=== PATIENT | female | born 1975 | race Caucasian/White ===

== ENCOUNTER 2017-08-17 06:29 | Day surgery (SDC) | payer BC ==
[2017-08-17] MEDS ORDERED: Sodium Chloride 0.9% 2.5 ML Syringe FLUSH PRN (06:38)
[2017-08-17] MEDS ORDERED: ceFAZolin 1 GM in Premix Bag 1 BAG IV ONE (06:38)
[2017-08-17] MEDS ORDERED: Sodium Chloride 0.9% 10 ML Syringe FLUSH PRN (06:38)
[2017-08-17] MEDS ORDERED: Lactated Ringers 1,000 ML IV SCH (06:45)
[2017-08-17] MEDS ORDERED: Scopolamine 1.5 MG Transdermal Patch TRDERM PRN (07:10)
--- NOTE | 2017-08-17 07:15 | PCM.PREANE ---
Preanesthetic Assessment - Anesthesia/Transfusion/Family Hx Anesthesia History: Prior Anesthesia Without Reaction Other Type of Anesthesia Reaction Comment: Awoke during orthopedic procedure ( sedation), no known problems in family Family History of Anesthesia Reaction: No Transfusion History: No Prior Transfusion(s) Intubation History: Unknown - Review of Systems General: No Symptoms Pulmonary: No Symptoms Cardiovascular: No Symptoms Gastrointestinal: No Symptoms Neurological: No Symptoms Other: Reports: None - Physical Assessment Height: 1.65 m Weight: 49.895 kg ASA Class: 2 Mental Status: Alert & Oriented x3 Airway Class: Mallampati = 2 Dentition: Reports: Normal Dentition Thyro-Mental Finger Breadths: 3 Mouth Opening Finger Breadths: 3 ROM/Head Extension: Full Lungs: Clear to Auscultation, Normal Respiratory Effort Cardiovascular: Regular Rate, Regular Rhythm - Allergies Allergies/Adverse Reactions: Allergies Allergy/AdvReac Type Severity Reaction Status Date / Time avocado Allergy Rash Verified 08/13/17 12:24 latex Allergy Itching Verified 08/13/17 12:24 strawberry Allergy Rash Verified 08/13/17 12:24 Fruits Allergy Rash Uncoded 03/07/14 10:13 Kiwi Allergy Rash Uncoded 03/07/14 10:13 strawb Allergy Rash Uncoded 03/07/14 10:13 - Blood Blood Available: No - Anesthesia Plan Pre-Op Medication Ordered: None - Acknowledgements Anesthesia Type Planned: General Anesthesia Pt an Appropriate Candidate for the Planned Anesthesia: Yes Alternatives and Risks of Anesthesia Discussed w Pt/Guardian: Yes Pt/Guardian Understands and Agrees with Anesthesia Plan: Yes PreAnesthesia Questionnaire HEENT History: Reports: Other (See Below) Other HEENT History: wears glasses Cardiovascular History: Reports: Heart Murmur Gastrointestinal History: Reports: None Genitourinary History: Reports: None 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: 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, , Other (See Below) (h/o ovarian cyst) Musculoskeletal History: Reports: Back Pain, Chronic, Fibromyalgia Neurological History: Reports: Migraines Psychiatric History: Reports: Anxiety, Depression Endocrine/Metabolic History: Reports: Hyperthyroidism (now normothyroid), Other (See Below) (h/o goiter) Oncologic (Cancer) History: Reports: None Dermatologic History: Reports: Other (See Below) (fibrocystic breats) - Past Surgical History Head Surgeries/Procedures: Reports: None GI Surgical History: Reports: Cholecystectomy Female Surgical History: Reports: Breast Biopsy, Section, D&C Other Female Surgeries/Procedures: laparoscopy for endometriosis x4 Musculoskeletal Surgical History: Reports: Other (See Below) Other Musculoskeletal Surgeries/Procedures:: debbie bunionectomy, ulnar nerve release Oncologic Surgical History: Reports: Biopsy of Breast - SUBSTANCE USE Smoking Status *Q: Former Smoker Tobacco Use Within Last Twelve Months: Cigarettes Recreational Drug Use History: No - HOME MEDS Home Medications: Home Meds Fexofenadine [Radha] 180 mg PO DAILY 08/13/17 [History] Pregabalin [Lyrica] 1 tab PO BID 08/13/17 [History] Varenicline Tartrate [Chantix] 1 tab PO BID 08/13/17 [History] - CURRENT (IN HOUSE) MEDS Current Meds: Current Medications Lactated Ringer's (Ringers, Lactated) 1,000 mls @ 125 mls/hr IV ASDIRECTED [facility] Lactated Ringer's (Ringers, Lactated) 1,000 mls @ 125 mls/hr IV ASDIRECTED [facility] Scopolamine (Transderm-Scop) 1.5 mg TRDERM Q72H PRN PRN Reason: Nausea Sodium Chloride (Saline Flush) 10 ml FLUSH ASDIRECTED PRN PRN Reason: Keep Vein Open Sodium Chloride (Saline Flush) 2.5 ml FLUSH ASDIRECTED PRN PRN Reason: Keep Vein Open Discontinued Medications Cefazolin Sodium/Dextrose 1 gm (/ Premix) 50 mls @ 100 mls/hr IV ONETIME ONE Stop: 08/17/17 07:07
[2017-08-17] MEDS ORDERED: Propofol 200 MG/20 ML SDV ONE ×2 (07:18→09:57)
[2017-08-17] MEDS ORDERED: Lidocaine 2% 5 ML SDV ONE (07:18)
[2017-08-17] MEDS ORDERED: Midazolam 1 MG/ML 2 ML SDV ONE (07:19)
[2017-08-17] MEDS: Lactated Ringers 1,000 ML IV SCH ×2 (07:19→13:51)
[2017-08-17] MEDS ORDERED: fentaNYL 100 MCG/2 ML SDV ONE ×2 (07:19→11:08)
[2017-08-17] MEDS ORDERED: fentaNYL 250 MCG/5 ML SDV ONE (07:19)
[2017-08-17] MEDS ORDERED: Ondansetron 4 MG/2 ML SDV ONE (07:23)
[2017-08-17] MEDS ORDERED: Ketorolac 30 MG/ML SDV ONE (07:23)
[2017-08-17] MEDS ORDERED: Neostigmine Methylsulfate 1 MG/ML 5 ML Syringe ONE (07:23)
[2017-08-17] MEDS ORDERED: Glycopyrrolate 0.2 MG/ML SDV ONE (07:23)
[2017-08-17] MEDS ORDERED: Rocuronium 10 MG/ML 10 ML Syringe ONE (07:23)
[2017-08-17] MEDS ORDERED: Vasopressin 20 Units/1 ML MDV ONE (07:30)
[2017-08-17] MEDS ORDERED: Fluorescein 5 ML Vial ONE (07:31)
[2017-08-17] MEDS ORDERED: Bupivacaine 0.25% 10 ML SDV ONE (07:31)
[2017-08-17] MEDS ORDERED: Methylene Blue 50 MG/10 ML Ampule ONE (07:42)
[2017-08-17 07:59] LABS: CHLORIDE,CL 103 mmol/L (98-107); SODIUM,NA 139 mmol/L (136-145)
[2017-08-17] MEDS ORDERED: ePHEDrine 50 MG/ML SDV ONE (08:36)
[2017-08-17] MEDS ORDERED: Furosemide 40 MG/4 ML VIAL ONE (08:38)
[2017-08-17] MEDS ORDERED: Promethazine 25 MG/ML SDV IM PRN (12:37)
[2017-08-17] MEDS ORDERED: Ketorolac 30 MG/ML SDV IVPUSH PRN (12:37)
[2017-08-17] MEDS ORDERED: Morphine 4 MG/ML Syringe IVPUSH PRN (12:37)
[2017-08-17] MEDS ORDERED: Acetaminophen/oxyCODONE 325-5 MG Tab PO PRN (12:37)
[2017-08-17] MEDS ORDERED: Ketorolac 30 MG/ML SDV IVPUSH ONE (12:37)
[2017-08-17] MEDS ORDERED: Ondansetron 4 MG/2 ML SDV IVPUSH PRN (12:37)
[2017-08-17] MEDS ORDERED: HYDROmorphone 2 MG/ML SDV ONE (12:46)
[2017-08-17] MEDS: fentaNYL 100 MCG/2 ML SDV IVPUSH PRN ×2 (12:47→12:55)
[2017-08-17] MEDS: HYDROmorphone 2 MG/ML SDV IVPUSH ONE ×2 (12:49→13:00)
--- NOTE | 2017-08-17 12:49 | PCM.OPNOTE ---
- General Post-Op/Procedure Note Date of Surgery/Procedure: 08/17/17 Operative Procedure(s): Total laparoscopic Hysterectomy , Bilateral salphingectomy , Cystoscopy Findings: Normal sized mobile uterus Laparoscopy showed normal uterus tubes and ovaries , no endometriotic deposits noted Cystoscopy showed intact bladder , normal ureteral jets bilaterally Pre Op Diagnosis: Abnormal uterine bleeding Post-Op Diagnosis: same Anesthesia Technique: General Mask Primary Surgeon: Gail Clark Secondary Surgeon: Vanessa Jules Anesthesia Provider: Delia Harris Radic Pathology: Uterus and tubes Fluid Replacement, Intraop: 2,300 Output, Urine Amount: 800 EBL in mLs: 10 Complications: None Condition: Good
--- NOTE | 2017-08-17 12:54 | PCM.POSTAN ---
POST ANESTHESIA ASSESSMENT - MENTAL STATUS Mental Status: Alert, Oriented - RESPIRATORY Respiratory Status: Respiratory Rate WNL, Airway Patent, O2 Saturation Stable - CARDIOVASCULAR CV Status: Pulse Rate WNL, Blood Pressure Stable - GASTROINTESTINAL GI Status: No Symptoms - POST OP HYDRATION Hydration Status: Adequate & Stable
[2017-08-17] MEDS: Acetaminophen 1,000 MG in Premix Bag 1 BAG IV SCH ×2 (14:43→20:40)
[2017-08-17] MEDS: Metoclopramide 10 MG/2 ML SDV IVPUSH SCH ×2 (14:46→20:40)
[2017-08-17] MEDS: Morphine 10 MG/ML Syringe IVPUSH PRN ×2 (15:26→17:44)
[2017-08-17] MEDS: ceFAZolin 1 GM in Premix Bag 1 BAG IV SCH ×2 (16:06→22:22)
--- NOTE | 2017-08-17 20:33 | PCM.SURGPN ---
- General Info Date of Service: 08/17/17 Date of Surgery/Procedure: 08/17/17 POD#: 0 Post-Op Diagnosis: Abnormal Uterine bleeding Admission Diagnosis/Problem: Abnormal uterine bleeding unrelated to menstrual cycle Functional Status: Reports: Pain Controlled, Tolerating Diet, Ambulating - Review of Systems General: Reports: No Symptoms HEENT: Reports: No Symptoms Pulmonary: Reports: No Symptoms Cardiovascular: Reports: No Symptoms Gastrointestinal: Reports: No Symptoms Genitourinary: Reports: No Symptoms Musculoskeletal: Reports: No Symptoms Skin: Reports: No Symptoms Neurological: Reports: No Symptoms Psychiatric: Reports: No Symptoms - Patient Data Vitals - Most Recent: Last Vital Signs Temp 35.9 C 08/17/17 14:05 Pulse 56 L 08/17/17 16:10 Resp 16 08/17/17 16:10 BP 109/58 L 08/17/17 16:10 Pulse Ox 99 08/17/17 16:10 Weight - Most Recent: 49.895 kg I&O - Last 24 Hours: Intake & Output 08/17/17 08/17/17 08/17/17 06:59 14:59 22:59 Intake Total 5200 720 Output Total 1950 825 Balance 3250 -105 Lab Results Last 24 Hrs: Laboratory Results - last 24 hr 08/17/17 08/17/17 08/17/17 Range/Units 07:09 07:09 07:14 WBC 5.30 (4.0-11.0) K/uL RBC 4.12 L (4.30-5.90) M/uL Hgb 12.7 (12.0-16.0) g/dL Hct 38.0 (36.0-46.0) % MCV 92.2 (80.0-98.0) fL MCH 30.8 (27.0-32.0) pg MCHC 33.4 (31.0-37.0) g/dL RDW Std Deviation 43.1 (28.0-62.0) fl RDW Coeff of Kay 13 (11.0-15.0) % Plt Count 247 (150-400) K/uL MPV 9.70 (7.40-12.00) fL Neut % (Auto) 45.2 L (48.0-80.0) % Lymph % (Auto) 40.4 H (16.0-40.0) % Moffat % (Auto) 10.6 (0.0-15.0) % Eos % (Auto) 3.0 (0.0-7.0) % Baso % (Auto) 0.8 (0.0-1.5) % Neut # (Auto) 2.4 (1.4-5.7) K/uL Lymph # (Auto) 2.1 (0.6-2.4) K/uL Moffat # (Auto) 0.6 (0.0-0.8) K/uL Eos # (Auto) 0.2 (0.0-0.7) K/uL Baso # (Auto) 0.0 (0.0-0.1) K/uL Nucleated RBC % 0.0 /100WBC Nucleated RBCs # 0 K/uL Sodium 139 (136-145) mmol/L Potassium 3.6 (3.5-5.1) mmol/L Chloride 103 (98-107) mmol/L Carbon Dioxide 26.8 (21.0-32.0) mmol/L BUN 9 (7.0-18.0) mg/dL Creatinine 0.9 (0.6-1.0) mg/dL Est Cr Clr Drug Dosing 63.48 mL/min Estimated GFR (MDRD) > 60.0 ml/min Glucose 100 (74-106) mg/dL Calcium 8.7 (8.5-10.1) mg/dL HCG, Qual NEGATIVE (NEG) Blood Type Antibody Screen 08/17/17 Range/Units 07:14 WBC (4.0-11.0) K/uL RBC (4.30-5.90) M/uL Hgb (12.0-16.0) g/dL Hct (36.0-46.0) % MCV (80.0-98.0) fL MCH (27.0-32.0) pg MCHC (31.0-37.0) g/dL RDW Std Deviation (28.0-62.0) fl RDW Coeff of Kay (11.0-15.0) % Plt Count (150-400) K/uL MPV (7.40-12.00) fL Neut % (Auto) (48.0-80.0) % Lymph % (Auto) (16.0-40.0) % Moffat % (Auto) (0.0-15.0) % Eos % (Auto) (0.0-7.0) % Baso % (Auto) (0.0-1.5) % Neut # (Auto) (1.4-5.7) K/uL Lymph # (Auto) (0.6-2.4) K/uL Moffat # (Auto) (0.0-0.8) K/uL Eos # (Auto) (0.0-0.7) K/uL Baso # (Auto) (0.0-0.1) K/uL Nucleated RBC % /100WBC Nucleated RBCs # K/uL Sodium (136-145) mmol/L Potassium (3.5-5.1) mmol/L Chloride (98-107) mmol/L Carbon Dioxide (21.0-32.0) mmol/L BUN (7.0-18.0) mg/dL Creatinine (0.6-1.0) mg/dL Est Cr Clr Drug Dosing mL/min Estimated GFR (MDRD) ml/min Glucose (74-106) mg/dL Calcium (8.5-10.1) mg/dL HCG, Qual (NEG) Blood Type AB POSITIVE Antibody Screen NEGATIVE Med Orders - Current: Current Medications Fentanyl (Sublimaze) 50 mcg IVPUSH Q5M PRN PRN Reason: Pain (severe 7-10) Stop: 08/18/17 09:26 Last Admin: 08/17/17 12:55 Dose: 50 mcg Lactated Ringer's (Ringers, Lactated) 1,000 mls @ 125 mls/hr IV ASDIRECTED [facility] Last Admin: 08/17/17 13:51 Dose: 125 mls/hr Lactated Ringer's (Ringers, Lactated) 1,000 mls @ 125 mls/hr IV ASDIRECTED [facility] Cefazolin Sodium/Dextrose 1 gm (/ Premix) 50 mls @ 200 mls/hr IV Q8HR [facility] Stop: 08/17/17 22:14 Last Admin: 08/17/17 16:06 Dose: 200 mls/hr Ketorolac Tromethamine (Toradol) 30 mg IVPUSH Q6H PRN PRN Reason: Pain (severe 7-10) Stop: 08/22/17 12:37 Metoclopramide HCl (Reglan) 10 mg IVPUSH Q6H [facility] Stop: 08/18/17 12:00 Last Admin: 08/17/17 14:46 Dose: 10 mg Morphine Sulfate (Morphine) 4 mg IVPUSH Q2H PRN PRN Reason: Pain (severe 7-10) Last Admin: 08/17/17 17:44 Dose: 4 mg Ondansetron HCl (Zofran) 4 mg IVPUSH Q6H PRN PRN Reason: Nausea/Vomiting Oxycodone/Acetaminophen (Percocet 325-5 Mg) 1 tab PO Q4H PRN PRN Reason: Pain (moderate 4-6) Oxycodone/Acetaminophen (Percocet 325-5 Mg) 2 tab PO Q4H PRN PRN Reason: Pain (moderate 4-6) Promethazine HCl (Phenergan) 25 mg IM Q6H PRN PRN Reason: Nausea/Vomiting Scopolamine (Transderm-Scop) 1.5 mg TRDERM Q72H PRN PRN Reason: Nausea Last Admin: 08/17/17 07:19 Dose: 1.5 mg Sodium Chloride (Saline Flush) 10 ml FLUSH ASDIRECTED PRN PRN Reason: Keep Vein Open Sodium Chloride (Saline Flush) 2.5 ml FLUSH ASDIRECTED PRN PRN Reason: Keep Vein Open Discontinued Medications Bupivacaine HCl (Sensorcaine-Mpf 0.25%) Confirm Administered Dose 10 ml .ROUTE .STK-MED ONE Stop: 08/17/17 07:32 Ephedrine Sulfate (Ephedrine Sulfate) Confirm Administered Dose 50 mg .ROUTE .STK-MED ONE Stop: 08/17/17 08:37 Fentanyl (Sublimaze) Confirm Administered Dose 100 mcg .ROUTE .STK-MED ONE Stop: 08/17/17 07:20 Fentanyl (Sublimaze) Confirm Administered Dose 250 mcg .ROUTE .STK-MED ONE Stop: 08/17/17 07:20 Fentanyl (Sublimaze) Confirm Administered Dose 100 mcg .ROUTE .STK-MED ONE Stop: 08/17/17 11:09 Fluorescein Sodium (Ak-Fluor) Confirm Administered Dose 5 ml .ROUTE .STK-MED ONE Stop: 08/17/17 07:32 Furosemide (Lasix) Confirm Administered Dose 40 mg .ROUTE .STK-MED ONE Stop: 08/17/17 08:39 Glycopyrrolate (Robinul) Confirm Administered Dose 0.6 mg .ROUTE .STK-MED ONE Stop: 08/17/17 07:24 Hydromorphone HCl (Dilaudid) 0 mg IVPUSH ONETIME ONE Stop: 08/17/17 09:27 Last Admin: 08/17/17 13:00 Dose: 1 mg Hydromorphone HCl (Dilaudid) Confirm Administered Dose 2 mg .ROUTE .STK-MED ONE Stop: 08/17/17 12:47 Cefazolin Sodium/Dextrose 1 gm (/ Premix) 50 mls @ 100 mls/hr IV ONETIME ONE Stop: 08/17/17 07:07 Cefazolin Sodium/Dextrose (Ancef) Confirm Administered Dose 50 mls @ as directed .ROUTE .STK-MED ONE Stop: 08/17/17 07:24 Acetaminophen 1,000 mg/ Premix 100 mls @ 400 mls/hr IV Q6H [facility] Stop: 08/17/17 20:14 Last Admin: 08/17/17 14:43 Dose: 400 mls/hr Ketorolac Tromethamine (Toradol) Confirm Administered Dose 30 mg .ROUTE .STK- MED ONE Stop: 08/17/17 07:24 Ketorolac Tromethamine (Toradol) 30 mg IVPUSH ONETIME ONE Stop: 08/17/17 12:38 Lidocaine (Xylocaine-Mpf 2%) Confirm Administered Dose 10 ml .ROUTE .STK-MED ONE Stop: 08/17/17 07:19 Methylene Blue (Provayblue) Confirm Administered Dose 50 mg .ROUTE .STK-MED ONE Stop: 08/17/17 07:43 Midazolam HCl (Versed 1 Mg/Ml) Confirm Administered Dose 2 mg .ROUTE .STK-MED ONE Stop: 08/17/17 07:20 Morphine Sulfate (Morphine) 4 mg IVPUSH Q2H PRN PRN Reason: Pain (severe 7-10) Neostigmine Methylsulfate (Neostigmine) Confirm Administered Dose 5 mg .ROUTE .STK-MED ONE Stop: 08/17/17 07:24 Ondansetron HCl (Zofran) Confirm Administered Dose 8 mg .ROUTE .STK-MED ONE Stop: 08/17/17 07:24 Propofol (Diprivan 20 Ml) Confirm Administered Dose 400 mg .ROUTE .STK-MED ONE Stop: 08/17/17 07:19 Propofol (Diprivan 20 Ml) Confirm Administered Dose 200 mg .ROUTE .STK-MED ONE Stop: 08/17/17 09:58 Rocuronium [place] (Zemuron) Confirm Administered Dose 100 mg .ROUTE .STK-MED ONE Stop: 08/17/17 07:24 Vasopressin (Vasopressin) Confirm Administered Dose 20 units .ROUTE .STK-MED ONE Stop: 08/17/17 07:31 - Exam Wound/Incisions: Dressing Dry and Intact General: Alert HEENT: Pupils Equal Neck: Supple Lungs: Clear to Auscultation Cardiovascular: Regular Rate, Regular Rhythm GI/Abdominal Exam: Other (Hypoactive) Extremities: Normal Inspection - Problem List & Annotations (1) S/P hysterectomy SNOMED Code(s): 278183174, 853140533, 902370218 Code(s): Z90.710 - ACQUIRED ABSENCE OF BOTH CERVIX AND UTERUS Status: Acute Current Visit: Yes - Problem List Review Problem List Initiated/Reviewed/Updated: Yes - My Orders Last 24 Hours: Active Orders 24 hr Category Date Time Status Patient Status [ADT] Routine ADT 08/17/17 06:39 Active Patient Status [ADT] Routine ADT 08/17/17 12:37 Active Notify Provider Intake and Out [RC] ASDIRECTED Care 08/17/17 12:37 Active Notify Provider Vital Signs [RC] ASDIRECTED Care 08/17/17 12:37 Active Oxygen Therapy [RC] ASDIRECTED Care 08/17/17 12:37 Active RT Incentive Spirometry [RC] Q2HWA Care 08/17/17 12:37 Active Up With Assistance [RC] PER UNIT ROUTINE Care 08/17/17 12:37 Active Up ad Pamela [RC] PER UNIT ROUTINE Care 08/17/17 12:37 Active Urinary Catheter Removal [RC] Per Unit Routine Care 08/17/17 12:37 Active Verify Patient Consent Obtain [RC] PER UNIT ROUTINE Care 08/17/17 06:39 Active Vital Signs [RC] PER UNIT ROUTINE Care 08/17/17 06:39 Active Vital Signs [RC] PER UNIT ROUTINE Care 08/17/17 12:37 Active Regular Diet [DIET] Diet 08/17/17 Dinner Active BASIC METABOLIC PANEL,BMP [CHEM] AM Lab 08/18/17 05:11 Ordered CBC WITH AUTO DIFF [HEME] AM Lab 08/18/17 05:11 Ordered Acetaminophen/oxyCODONE [Percocet 325-5 MG] Med 08/17/17 12:37 Active 1 tab PO Q4H PRN Acetaminophen/oxyCODONE [Percocet 325-5 MG] Med 08/17/17 12:37 Active 2 tab PO Q4H PRN Ketorolac [Toradol] Med 08/17/17 12:37 Active 30 mg IVPUSH Q6H PRN Lactated Ringers [Ringers, Lactated] 1,000 ml Med 08/17/17 06:45 Active IV ASDIRECTED Lactated Ringers [Ringers, Lactated] 1,000 ml Med 08/17/17 06:45 Active IV ASDIRECTED Metoclopramide [Reglan] Med 08/17/17 12:45 Active 10 mg IVPUSH Q6H Morphine Med 08/17/17 15:20 Active 4 mg IVPUSH Q2H PRN Ondansetron [Zofran] Med 08/17/17 12:37 Active 4 mg IVPUSH Q6H PRN Promethazine [Phenergan] Med 08/17/17 12:37 Active 25 mg IM Q6H PRN Scopolamine [Transderm-Scop] Med 08/17/17 07:10 Active 1.5 mg TRDERM Q72H PRN Sodium Chloride 0.9% [Saline Flush] Med 08/17/17 06:38 Active 10 ml FLUSH ASDIRECTED PRN Sodium Chloride 0.9% [Saline Flush] Med 08/17/17 06:38 Active 2.5 ml FLUSH ASDIRECTED PRN ceFAZolin [Ancef] 1 gm Med 08/17/17 16:00 Active Premix Bag 1 bag IV Q8HR fentaNYL [Sublimaze] Med 08/17/17 09:26 Active 50 mcg IVPUSH Q5M PRN Peripheral IV Discontinue [OM.PC] Routine Oth 08/17/17 12:37 Ordered Peripheral IV Insertion Adult [OM.PC] Urgent Oth 08/17/17 06:39 Ordered Sequential Compression Device [OM.PC] Per Unit Routine Oth 08/17/17 06:39 Ordered Sequential Compression Device [OM.PC] Per Unit Routine Oth 08/17/17 12:37 Ordered Resuscitation Status Routine Resus Stat 08/17/17 12:37 Ordered Medication Orders Fentanyl (Sublimaze) 50 mcg IVPUSH Q5M PRN PRN Reason: Pain (severe 7-10) Stop: 08/18/17 09:26 Last Admin: 08/17/17 12:55 Dose: 50 mcg Admin: 08/17/17 12:47 Dose: 50 mcg Lactated Ringer's (Ringers, Lactated) 1,000 mls @ 125 mls/hr IV ASDIRECTED [facility] Last Admin: 08/17/17 13:51 Dose: 125 mls/hr Infusion: 08/17/17 13:51 Dose: 125 mls/hr Admin: 08/17/17 07:19 Dose: 125 mls/hr Lactated Ringer's (Ringers, Lactated) 1,000 mls @ 125 mls/hr IV ASDIRECTED [facility] Cefazolin Sodium/Dextrose 1 gm (/ Premix) 50 mls @ 200 mls/hr IV Q8HR [facility] Stop: 08/17/17 22:14 Last Admin: 08/17/17 16:06 Dose: 200 mls/hr Ketorolac Tromethamine (Toradol) 30 mg IVPUSH Q6H PRN PRN Reason: Pain (severe 7-10) Stop: 08/22/17 12:37 Metoclopramide HCl (Reglan) 10 mg IVPUSH Q6H [facility] Stop: 08/18/17 12:00 Last Admin: 08/17/17 14:46 Dose: 10 mg Morphine Sulfate (Morphine) 4 mg IVPUSH Q2H PRN PRN Reason: Pain (severe 7-10) Last Admin: 08/17/17 17:44 Dose: 4 mg Admin: 08/17/17 15:26 Dose: 4 mg Ondansetron HCl (Zofran) 4 mg IVPUSH Q6H PRN PRN Reason: Nausea/Vomiting Oxycodone/Acetaminophen (Percocet 325-5 Mg) 1 tab PO Q4H PRN PRN Reason: Pain (moderate 4-6) Oxycodone/Acetaminophen (Percocet 325-5 Mg) 2 tab PO Q4H PRN PRN Reason: Pain (moderate 4-6) Promethazine HCl (Phenergan) 25 mg IM Q6H PRN PRN Reason: Nausea/Vomiting Scopolamine (Transderm-Scop) 1.5 mg TRDERM Q72H PRN PRN Reason: Nausea Last Admin: 08/17/17 07:19 Dose: 1.5 mg Sodium Chloride (Saline Flush) 10 ml FLUSH ASDIRECTED PRN PRN Reason: Keep Vein Open Sodium Chloride (Saline Flush) 2.5 ml FLUSH ASDIRECTED PRN PRN Reason: Keep Vein Open - Assessment Assessment (Free Text/Narrative):: 42 yo s/p TLH /BS POD 0, stable , has good pain control , U/O adequate , clear - Plan Plan (Free Text/Narrative):: Incentive spirometry Ambulate Pain control as needed
[2017-08-17] MEDS: Acetaminophen/oxyCODONE 325-5 MG Tab PO PRN (22:26)
--- NOTE | 2017-08-18 00:54 | OR ---
SURGEON: ESTEPHANIA MIKE DATE OF PROCEDURE: 08/17/2017 CO-SURGEON: Vanessa Jules MD PREOPERATIVE DIAGNOSES: 1. A 42-year-old para 3 with abnormal uterine bleeding. 2. History of endometriosis. POSTOPERATIVE DIAGNOSIS: Abnormal uterine bleeding. PROCEDURES PERFORMED: Total laparoscopic hysterectomy, bilateral salpingectomy, and cystoscopy. INTRAVENOUS FLUIDS: 2300 mL. ESTIMATED BLOOD LOSS: 10 mL. URINE OUTPUT: 800 mL, clear. FINDINGS: Normal-sized anteverted uterus. Laparoscopy showed normal uterus, tubes, and ovary. There was a physiological cyst about 2 cm on the right ovary. BRIEF HISTORY ABOUT PATIENT: She is a 42-year-old para 3 with history of and x1, has also had multiple laparoscopies done for endometriosis. We could not get records. However, the patient came in complaining of abnormal uterine bleeding and very painful periods. She said NSAIDs did not improve her pain. The patient did not want any other form of management and allergic to Depo-Provera in the past. As a result, the patient wanted to go ahead with a hysterectomy. She was informed the risks, benefits, and alternatives and wanted to proceed with procedure. DESCRIPTION OF PROCEDURE: The patient was taken to the operating room, where IV fluid was running, and pneumatic compression stockings were applied to the lower extremities. General anesthesia was performed without difficulty. The patient was placed in the dorsal lithotomy position with Sanjiv stirrups. Both arms were tucked on both sides. Examination under anesthesia revealed a normal-sized uterus. The patient was prepared and draped in the usual sterile fashion. A Woods catheter was inserted. A bivalve speculum was placed to expose the cervix. The anterior lip of the cervix was grasped with an Allis clamp. The uterus was then sounded to 8 cm. The Advincula Flat Spring Assembler was placed into the cervix of the uterus, and the tip over the Advincula was inflated. The Advincula was then pushed to the junction between the cervix and the uterus. The occluder balloon was then inflated. Attention was then turned to the abdomen, where Marcaine was injected into the subumbilical fold. A small incision was made at the Blanco's point 3 cm beneath the midaxillary line on the Blanco's point. The abdomen was then entered via direct entry with a fiberoptic trocar. Upon confirmation of entry into the peritoneal cavity, the CO2 gas was insufflated into the abdomen to a pressure of 15 mmHg. The intraabdominal survey revealed normal-appearing liver, gallbladder, and spleen. The pelvic and abdomen were as noted above. Then, two 5 mm trocars were inserted in the bilateral lower quadrants, 2 fingerbreadths medial and anterior to the anterior suprailiac spine and diagonal to the umbilicus. Again, a likely incision was made, and another trocar was also placed there. The Trendelenburg position was then done to facilitate the pelvic exposure. Both ureters were identified, and the hysterectomy was started on the right. On the left side, the fallopian tube was transected from the pelvic sidewall all the way to the cornua. Then, the ovarian ligament was detached from the body of the uterus. The round ligament was then transected, and the broad ligament was then entered. With careful dissection, the prior bladder flap was created anteriorly and also posteriorly for the peritoneum was to the level of the uterosacral. The uterine vessel was then coagulated above the cup and slightly below the cup. At the cup, the uterine vessel was then coagulated and cut. This was done on both sides. With the uterine vessel being coagulated and cut, the uterine vessel was also lateralized. A colpotomy incision was then made with a Harmonic device at the cervicovaginal junction. The uterosacral and cardinal ligaments were completely detached from the cervix. After completion of this, attention was then placed to the vagina where the uterus was removed. Then, the occluder balloon was placed back into the vagina. Attention was then paid to the top, where the peritoneum of the bladder was from the cuff. V-Loc suture was then passed through the vagina. The colpotomy was then closed in three layers from above; one with the uterus, the colpotomy was closed, and the second was from the pelvic to peritoneum. The colpotomy incision was then inspected and noted to be hemostatic. The pressure was reduced to 5 mmHg and was also noted to be hemostatic. All instrument and pad counts were correct x2. The abdomen was then deflated to 5 mmHg, where hemostasis was also noted, and all the instrument was removed from the abdomen. Then, a cystoscopy was performed, and it showed bilateral ureteral jets after sodium fluorescein was given. The laparoscopic incision was closed with 3-0 Monocryl. Steri-Strip was placed, and Tegaderm was placed. The patient tolerated the procedure well and taken to the operating room in stable condition. YVETTE GAGNON /[id number]
[2017-08-18] MEDS: Metoclopramide 10 MG/2 ML SDV IVPUSH SCH ×2 (02:45→07:48)
[2017-08-18 06:06] LABS: CHLORIDE,CL 103 mmol/L (98-107); SODIUM,NA 138 mmol/L (136-145)
[2017-08-18 07:33] VITALS: BP 87/53
--- NOTE | 2017-08-18 08:05 | PCM48HPAN ---
Post Anesthesia Note - EVALUATION WITHIN 48HRS OF ANESTHETIC Vital Signs in Normal Range: Yes Patient Participated in Evaluation: Yes Respiratory Function Stable: Yes Airway Patent: Yes Cardiovascular Function Stable: Yes Hydration Status Stable: Yes Pain Control Satisfactory: Yes Nausea and Vomiting Control Satisfactory: Yes Mental Status Recovered: Yes Resp Rate: 15
--- NOTE | 2017-08-18 08:05 | PCM.SURGPN ---
- General Info Date of Service: 08/18/17 Date of Surgery/Procedure: 08/18/17 POD#: 1 Post-Op Diagnosis: Abnormal Uterine Bleeding Functional Status: Reports: Pain Controlled, Tolerating Diet, Ambulating, Urinating - Review of Systems General: Reports: No Symptoms HEENT: Reports: No Symptoms Pulmonary: Reports: No Symptoms Cardiovascular: Reports: No Symptoms Gastrointestinal: Reports: No Symptoms Genitourinary: Reports: No Symptoms Musculoskeletal: Reports: No Symptoms Skin: Reports: No Symptoms Neurological: Reports: No Symptoms Psychiatric: Reports: No Symptoms - Patient Data Vitals - Most Recent: Last Vital Signs Temp 36.9 C 08/18/17 07:25 Pulse 56 L 08/18/17 07:25 Resp 15 08/18/17 07:25 BP 87/53 L 08/18/17 07:25 Pulse Ox 97 08/18/17 07:25 Weight - Most Recent: 49.895 kg I&O - Last 24 Hours: Intake & Output 08/17/17 08/18/17 08/18/17 22:59 06:59 14:59 Intake Total 820 1050 Output Total 825 600 Balance -5 450 Lab Results Last 24 Hrs: Laboratory Results - last 24 hr 08/17/17 08/17/17 08/17/17 Range/Units 07:09 07:14 07:14 WBC (4.0-11.0) K/uL RBC (4.30-5.90) M/uL Hgb (12.0-16.0) g/dL Hct (36.0-46.0) % MCV (80.0-98.0) fL MCH (27.0-32.0) pg MCHC (31.0-37.0) g/dL RDW Std Deviation (28.0-62.0) fl RDW Coeff of Kay (11.0-15.0) % Plt Count (150-400) K/uL MPV (7.40-12.00) fL Neut % (Auto) (48.0-80.0) % Lymph % (Auto) (16.0-40.0) % Jennings % (Auto) (0.0-15.0) % Eos % (Auto) (0.0-7.0) % Baso % (Auto) (0.0-1.5) % Neut # (Auto) (1.4-5.7) K/uL Lymph # (Auto) (0.6-2.4) K/uL Jennings # (Auto) (0.0-0.8) K/uL Eos # (Auto) (0.0-0.7) K/uL Baso # (Auto) (0.0-0.1) K/uL Nucleated RBC % /100WBC Nucleated RBCs # K/uL Sodium 139 (136-145) mmol/L Potassium 3.6 (3.5-5.1) mmol/L Chloride 103 (98-107) mmol/L Carbon Dioxide 26.8 (21.0-32.0) mmol/L BUN 9 (7.0-18.0) mg/dL Creatinine 0.9 (0.6-1.0) mg/dL Est Cr Clr Drug Dosing 63.48 mL/min Estimated GFR (MDRD) > 60.0 ml/min Glucose 100 (74-106) mg/dL Calcium 8.7 (8.5-10.1) mg/dL HCG, Qual NEGATIVE (NEG) Blood Type AB POSITIVE Antibody Screen NEGATIVE 08/18/17 08/18/17 Range/Units 05:42 05:42 WBC 6.04 (4.0-11.0) K/uL RBC 3.32 L (4.30-5.90) M/uL Hgb 10.3 L (12.0-16.0) g/dL Hct 30.9 L (36.0-46.0) % MCV 93.1 (80.0-98.0) fL MCH 31.0 (27.0-32.0) pg MCHC 33.3 (31.0-37.0) g/dL RDW Std Deviation 43.1 (28.0-62.0) fl RDW Coeff of Kay 13 (11.0-15.0) % Plt Count 187 (150-400) K/uL MPV 9.00 (7.40-12.00) fL Neut % (Auto) 61.7 (48.0-80.0) % Lymph % (Auto) 27.3 (16.0-40.0) % Jennings % (Auto) 8.9 (0.0-15.0) % Eos % (Auto) 1.8 (0.0-7.0) % Baso % (Auto) 0.3 (0.0-1.5) % Neut # (Auto) 3.7 (1.4-5.7) K/uL Lymph # (Auto) 1.7 (0.6-2.4) K/uL Jennings # (Auto) 0.5 (0.0-0.8) K/uL Eos # (Auto) 0.1 (0.0-0.7) K/uL Baso # (Auto) 0.0 (0.0-0.1) K/uL Nucleated RBC % 0.0 /100WBC Nucleated RBCs # 0 K/uL Sodium 138 (136-145) mmol/L Potassium 3.7 (3.5-5.1) mmol/L Chloride 103 (98-107) mmol/L Carbon Dioxide 27.4 (21.0-32.0) mmol/L BUN 5 L (7.0-18.0) mg/dL Creatinine 0.8 (0.6-1.0) mg/dL Est Cr Clr Drug Dosing 71.42 mL/min Estimated GFR (MDRD) > 60.0 ml/min Glucose 93 (74-106) mg/dL Calcium 8.2 L (8.5-10.1) mg/dL HCG, Qual (NEG) Blood Type Antibody Screen Med Orders - Current: Current Medications Fentanyl (Sublimaze) 50 mcg IVPUSH Q5M PRN PRN Reason: Pain (severe 7-10) Stop: 08/18/17 09:26 Last Admin: 08/17/17 12:55 Dose: 50 mcg Lactated Ringer's (Ringers, Lactated) 1,000 mls @ 125 mls/hr IV ASDIRECTED [facility] Last Admin: 08/17/17 13:51 Dose: 125 mls/hr Lactated Ringer's (Ringers, Lactated) 1,000 mls @ 125 mls/hr IV ASDIRECTED [facility] Ketorolac Tromethamine (Toradol) 30 mg IVPUSH Q6H PRN PRN Reason: Pain (severe 7-10) Stop: 08/22/17 12:37 Metoclopramide HCl (Reglan) 10 mg IVPUSH Q6H [facility] Stop: 08/18/17 12:00 Last Admin: 08/18/17 07:48 Dose: Not Given Morphine Sulfate (Morphine) 4 mg IVPUSH Q2H PRN PRN Reason: Pain (severe 7-10) Last Admin: 08/17/17 17:44 Dose: 4 mg Ondansetron HCl (Zofran) 4 mg IVPUSH Q6H PRN PRN Reason: Nausea/Vomiting Oxycodone/Acetaminophen (Percocet 325-5 Mg) 1 tab PO Q4H PRN PRN Reason: Pain (moderate 4-6) Last Admin: 08/18/17 05:16 Dose: 1 tab Oxycodone/Acetaminophen (Percocet 325-5 Mg) 2 tab PO Q4H PRN PRN Reason: Pain (moderate 4-6) Last Admin: 08/17/17 22:26 Dose: 2 tab Promethazine HCl (Phenergan) 25 mg IM Q6H PRN PRN Reason: Nausea/Vomiting Scopolamine (Transderm-Scop) 1.5 mg TRDERM Q72H PRN PRN Reason: Nausea Last Admin: 08/17/17 07:19 Dose: 1.5 mg Sodium Chloride (Saline Flush) 10 ml FLUSH ASDIRECTED PRN PRN Reason: Keep Vein Open Sodium Chloride (Saline Flush) 2.5 ml FLUSH ASDIRECTED PRN PRN Reason: Keep Vein Open Discontinued Medications Bupivacaine HCl (Sensorcaine-Mpf 0.25%) Confirm Administered Dose 10 ml .ROUTE .STK-MED ONE Stop: 08/17/17 07:32 Ephedrine Sulfate (Ephedrine Sulfate) Confirm Administered Dose 50 mg .ROUTE .STK-MED ONE Stop: 08/17/17 08:37 Fentanyl (Sublimaze) Confirm Administered Dose 100 mcg .ROUTE .STK-MED ONE Stop: 08/17/17 07:20 Fentanyl (Sublimaze) Confirm Administered Dose 250 mcg .ROUTE .STK-MED ONE Stop: 08/17/17 07:20 Fentanyl (Sublimaze) Confirm Administered Dose 100 mcg .ROUTE .STK-MED ONE Stop: 08/17/17 11:09 Fluorescein Sodium (Ak-Fluor) Confirm Administered Dose 5 ml .ROUTE .STK-MED ONE Stop: 08/17/17 07:32 Furosemide (Lasix) Confirm Administered Dose 40 mg .ROUTE .STK-MED ONE Stop: 08/17/17 08:39 Glycopyrrolate (Robinul) Confirm Administered Dose 0.6 mg .ROUTE .STK-MED ONE Stop: 08/17/17 07:24 Hydromorphone HCl (Dilaudid) 0 mg IVPUSH ONETIME ONE Stop: 08/17/17 09:27 Last Admin: 08/17/17 13:00 Dose: 1 mg Hydromorphone HCl (Dilaudid) Confirm Administered Dose 2 mg .ROUTE .STK-MED ONE Stop: 08/17/17 12:47 Last Admin: 08/17/17 21:46 Dose: Not Given Cefazolin Sodium/Dextrose 1 gm (/ Premix) 50 mls @ 100 mls/hr IV ONETIME ONE Stop: 08/17/17 07:07 Last Admin: 08/17/17 21:45 Dose: Not Given Cefazolin Sodium/Dextrose (Ancef) Confirm Administered Dose 50 mls @ as directed .ROUTE .STK-MED ONE Stop: 08/17/17 07:24 Acetaminophen 1,000 mg/ Premix 100 mls @ 400 mls/hr IV Q6H [facility] Stop: 08/17/17 20:14 Last Admin: 08/17/17 20:40 Dose: 400 mls/hr Cefazolin Sodium/Dextrose 1 gm (/ Premix) 50 mls @ 200 mls/hr IV Q8HR [facility] Stop: 08/17/17 22:14 Last Admin: 08/17/17 22:22 Dose: 200 mls/hr Ketorolac Tromethamine (Toradol) Confirm Administered Dose 30 mg .ROUTE .STK- MED ONE Stop: 08/17/17 07:24 Ketorolac Tromethamine (Toradol) 30 mg IVPUSH ONETIME ONE Stop: 08/17/17 12:38 Last Admin: 08/17/17 21:46 Dose: Not Given Lidocaine (Xylocaine-Mpf 2%) Confirm Administered Dose 10 ml .ROUTE .STK-MED ONE Stop: 08/17/17 07:19 Methylene Blue (Provayblue) Confirm Administered Dose 50 mg .ROUTE .STK-MED ONE Stop: 08/17/17 07:43 Midazolam HCl (Versed 1 Mg/Ml) Confirm Administered Dose 2 mg .ROUTE .STK-MED ONE Stop: 08/17/17 07:20 Morphine Sulfate (Morphine) 4 mg IVPUSH Q2H PRN PRN Reason: Pain (severe 7-10) Neostigmine Methylsulfate (Neostigmine) Confirm Administered Dose 5 mg .ROUTE .STK-MED ONE Stop: 08/17/17 07:24 Ondansetron HCl (Zofran) Confirm Administered Dose 8 mg .ROUTE .STK-MED ONE Stop: 08/17/17 07:24 Propofol (Diprivan 20 Ml) Confirm Administered Dose 400 mg .ROUTE .STK-MED ONE Stop: 08/17/17 07:19 Propofol (Diprivan 20 Ml) Confirm Administered Dose 200 mg .ROUTE .STK-MED ONE Stop: 08/17/17 09:58 Rocuronium [place] (Zemuron) Confirm Administered Dose 100 mg .ROUTE .STK-MED ONE Stop: 08/17/17 07:24 Vasopressin (Vasopressin) Confirm Administered Dose 20 units .ROUTE .STK-MED ONE Stop: 08/17/17 07:31 - Exam Wound/Incisions: Dressing Dry and Intact General: Alert, Oriented HEENT: Pupils Equal Neck: Supple Lungs: Clear to Auscultation Cardiovascular: Regular Rate, Regular Rhythm GI/Abdominal Exam: Normal Bowel Sounds Extremities: Normal Inspection Skin: Warm Neurological: No New Focal Deficit Psy/Mental Status: Alert - Problem List & Annotations (1) S/P hysterectomy SNOMED Code(s): 885779579, 263224720, [id number] Code(s): Z90.710 - ACQUIRED ABSENCE OF BOTH CERVIX AND UTERUS Status: Acute Current Visit: Yes - Problem List Review Problem List Initiated/Reviewed/Updated: Yes - My Orders Last 24 Hours: Active Orders 24 hr Category Date Time Status Patient Status [ADT] Routine ADT 08/17/17 12:37 Active Notify Provider Intake and Out [RC] ASDIRECTED Care 08/17/17 12:37 Active Notify Provider Vital Signs [RC] ASDIRECTED Care 08/17/17 12:37 Active Oxygen Therapy [RC] ASDIRECTED Care 08/17/17 12:37 Active RT Incentive Spirometry [RC] Q2HWA Care 08/17/17 12:37 Active Up With Assistance [RC] PER UNIT ROUTINE Care 08/17/17 12:37 Active Up ad Pamela [RC] PER UNIT ROUTINE Care 08/17/17 12:37 Active Vital Signs [RC] PER UNIT ROUTINE Care 08/17/17 12:37 Active Regular Diet [DIET] Diet 08/17/17 Dinner Active Acetaminophen/oxyCODONE [Percocet 325-5 MG] Med 08/17/17 12:37 Active 1 tab PO Q4H PRN Acetaminophen/oxyCODONE [Percocet 325-5 MG] Med 08/17/17 12:37 Active 2 tab PO Q4H PRN Ketorolac [Toradol] Med 08/17/17 12:37 Active 30 mg IVPUSH Q6H PRN Metoclopramide [Reglan] Med 08/17/17 12:45 Active 10 mg IVPUSH Q6H Morphine Med 08/17/17 15:20 Active 4 mg IVPUSH Q2H PRN Ondansetron [Zofran] Med 08/17/17 12:37 Active 4 mg IVPUSH Q6H PRN Promethazine [Phenergan] Med 08/17/17 12:37 Active 25 mg IM Q6H PRN Scopolamine [Transderm-Scop] Med 08/17/17 07:10 Active 1.5 mg TRDERM Q72H PRN fentaNYL [Sublimaze] Med 08/17/17 09:26 Active 50 mcg IVPUSH Q5M PRN Peripheral IV Discontinue [OM.PC] Routine Oth 08/17/17 12:37 Ordered Sequential Compression Device [OM.PC] Per Unit Routine Oth 08/17/17 12:37 Ordered Resuscitation Status Routine Resus Stat 08/17/17 12:37 Ordered Medication Orders Fentanyl (Sublimaze) 50 mcg IVPUSH Q5M PRN PRN Reason: Pain (severe 7-10) Stop: 08/18/17 09:26 Last Admin: 08/17/17 12:55 Dose: 50 mcg Admin: 08/17/17 12:47 Dose: 50 mcg Lactated Ringer's (Ringers, Lactated) 1,000 mls @ 125 mls/hr IV ASDIRECTED [facility] Last Admin: 08/17/17 13:51 Dose: 125 mls/hr Infusion: 08/17/17 13:51 Dose: 125 mls/hr Admin: 08/17/17 07:19 Dose: 125 mls/hr Lactated Ringer's (Ringers, Lactated) 1,000 mls @ 125 mls/hr IV ASDIRECTED [facility] Ketorolac Tromethamine (Toradol) 30 mg IVPUSH Q6H PRN PRN Reason: Pain (severe 7-10) Stop: 08/22/17 12:37 Metoclopramide HCl (Reglan) 10 mg IVPUSH Q6H [facility] Stop: 08/18/17 12:00 Last Admin: 08/18/17 07:48 Dose: Not Given Admin: 08/18/17 02:45 Dose: 10 mg Admin: 08/17/17 20:40 Dose: 10 mg Admin: 08/17/17 14:46 Dose: 10 mg Morphine Sulfate (Morphine) 4 mg IVPUSH Q2H PRN PRN Reason: Pain (severe 7-10) Last Admin: 08/17/17 17:44 Dose: 4 mg Admin: 08/17/17 15:26 Dose: 4 mg Ondansetron HCl (Zofran) 4 mg IVPUSH Q6H PRN PRN Reason: Nausea/Vomiting Oxycodone/Acetaminophen (Percocet 325-5 Mg) 1 tab PO Q4H PRN PRN Reason: Pain (moderate 4-6) Last Admin: 08/18/17 05:16 Dose: 1 tab Oxycodone/Acetaminophen (Percocet 325-5 Mg) 2 tab PO Q4H PRN PRN Reason: Pain (moderate 4-6) Last Admin: 08/17/17 22:26 Dose: 2 tab Promethazine HCl (Phenergan) 25 mg IM Q6H PRN PRN Reason: Nausea/Vomiting Scopolamine (Transderm-Scop) 1.5 mg TRDERM Q72H PRN PRN Reason: Nausea Last Admin: 08/17/17 07:19 Dose: 1.5 mg Sodium Chloride (Saline Flush) 10 ml FLUSH ASDIRECTED PRN PRN Reason: Keep Vein Open Sodium Chloride (Saline Flush) 2.5 ml FLUSH ASDIRECTED PRN PRN Reason: Keep Vein Open - Assessment Assessment (Free Text/Narrative):: 42 yo s/p TLH/ BS and cystoscopy for fibroid uterus , POD 1 stable - Plan Plan (Free Text/Narrative):: Discharge home Pain control Encourage to ambulate
--- NOTE | 2017-08-18 08:13 | PCM.DCSUM1 ---
Discharge Summary - Hospital Course Free Text/Narrative:: 42 yo s/p TLH /BS for Abnormal Uterine bleeding Diagnosis: Stroke: No - Discharge Data Discharge Date: 08/18/17 Discharge Disposition: Home, Self-Care 01 Condition: Good - Discharge Diagnosis/Problem(s) (1) S/P hysterectomy SNOMED Code(s): 700027891, [id number], [id number] ICD Code: Z90.710 - ACQUIRED ABSENCE OF BOTH CERVIX AND UTERUS Status: Acute Current Visit: Yes - Patient Summary/Data Operative Procedure(s) Performed: Total laparoscopic Hysterectomy , Bilateral salphingectomy , Cystoscopy Hospital Course: Patient had an uncomplicated surgery , she is ambulating , urinating and tolerating regular diet - Patient Instructions Activity: As Tolerated, No Lifting Over 20 Pounds Driving: Do Not Drive Showering/Bathing: May Shower Wound/Incision Care: Keep Operative Site/Wound Site Clean and Dry Notify Provider of: Fever, Increased Pain, Swelling and Redness Other/Special Instructions: Pain control with Percocet and Motrin. Incentive spirometry. Encourage ambulation. Follow up in 2 and 6 weeks. Nothing in the vagina for 6 weeks - Discharge Plan Home Medications: Home Meds Fexofenadine [Radha] 180 mg PO DAILY 08/13/17 [History] Pregabalin [Lyrica] 1 tab PO BID 08/13/17 [History] Varenicline Tartrate [Chantix] 1 tab PO BID 08/13/17 [History] Referrals: [facility] [Outside] Gail Clark MD [Physician] - (2 week- August 31 @ 3:30pm w/ week- September 30 @ 2:00pm w/ ) - Patient Data Vitals - Most Recent: Last Vital Signs Temp 36.9 C 08/18/17 07:25 Pulse 56 L 08/18/17 07:25 Resp 15 08/18/17 08:05 BP 87/53 L 08/18/17 07:25 Pulse Ox 97 08/18/17 07:25 Weight - Most Recent: 49.895 kg I&O - Last 24 hours: Intake & Output 08/17/17 08/18/17 08/18/17 22:59 06:59 14:59 Intake Total 820 1050 Output Total 825 600 Balance -5 450 Lab Results - Last 24 hrs: Laboratory Results - last 24 hr 08/17/17 08/17/17 08/18/17 Range/Units 07:14 07:14 05:42 WBC 6.04 (4.0-11.0) K/uL RBC 3.32 L (4.30-5.90) M/uL Hgb 10.3 L (12.0-16.0) g/dL Hct 30.9 L (36.0-46.0) % MCV 93.1 (80.0-98.0) fL MCH 31.0 (27.0-32.0) pg MCHC 33.3 (31.0-37.0) g/dL RDW Std Deviation 43.1 (28.0-62.0) fl RDW Coeff of Kay 13 (11.0-15.0) % Plt Count 187 (150-400) K/uL MPV 9.00 (7.40-12.00) fL Neut % (Auto) 61.7 (48.0-80.0) % Lymph % (Auto) 27.3 (16.0-40.0) % Cooper % (Auto) 8.9 (0.0-15.0) % Eos % (Auto) 1.8 (0.0-7.0) % Baso % (Auto) 0.3 (0.0-1.5) % Neut # (Auto) 3.7 (1.4-5.7) K/uL Lymph # (Auto) 1.7 (0.6-2.4) K/uL Cooper # (Auto) 0.5 (0.0-0.8) K/uL Eos # (Auto) 0.1 (0.0-0.7) K/uL Baso # (Auto) 0.0 (0.0-0.1) K/uL Nucleated RBC % 0.0 /100WBC Nucleated RBCs # 0 K/uL Sodium 139 (136-145) mmol/L Potassium 3.6 (3.5-5.1) mmol/L Chloride 103 (98-107) mmol/L Carbon Dioxide 26.8 (21.0-32.0) mmol/L BUN 9 (7.0-18.0) mg/dL Creatinine 0.9 (0.6-1.0) mg/dL Est Cr Clr Drug Dosing 63.48 mL/min Estimated GFR (MDRD) > 60.0 ml/min Glucose 100 (74-106) mg/dL Calcium 8.7 (8.5-10.1) mg/dL Blood Type AB POSITIVE Antibody Screen NEGATIVE 08/18/17 Range/Units 05:42 WBC (4.0-11.0) K/uL RBC (4.30-5.90) M/uL Hgb (12.0-16.0) g/dL Hct (36.0-46.0) % MCV (80.0-98.0) fL MCH (27.0-32.0) pg MCHC (31.0-37.0) g/dL RDW Std Deviation (28.0-62.0) fl RDW Coeff of Kay (11.0-15.0) % Plt Count (150-400) K/uL MPV (7.40-12.00) fL Neut % (Auto) (48.0-80.0) % Lymph % (Auto) (16.0-40.0) % Cooper % (Auto) (0.0-15.0) % Eos % (Auto) (0.0-7.0) % Baso % (Auto) (0.0-1.5) % Neut # (Auto) (1.4-5.7) K/uL Lymph # (Auto) (0.6-2.4) K/uL Cooper # (Auto) (0.0-0.8) K/uL Eos # (Auto) (0.0-0.7) K/uL Baso # (Auto) (0.0-0.1) K/uL Nucleated RBC % /100WBC Nucleated RBCs # K/uL Sodium 138 (136-145) mmol/L Potassium 3.7 (3.5-5.1) mmol/L Chloride 103 (98-107) mmol/L Carbon Dioxide 27.4 (21.0-32.0) mmol/L BUN 5 L (7.0-18.0) mg/dL Creatinine 0.8 (0.6-1.0) mg/dL Est Cr Clr Drug Dosing 71.42 mL/min Estimated GFR (MDRD) > 60.0 ml/min Glucose 93 (74-106) mg/dL Calcium 8.2 L (8.5-10.1) mg/dL Blood Type Antibody Screen Med Orders - Current: Current Medications Fentanyl (Sublimaze) 50 mcg IVPUSH Q5M PRN PRN Reason: Pain (severe 7-10) Stop: 08/18/17 09:26 Last Admin: 08/17/17 12:55 Dose: 50 mcg Lactated Ringer's (Ringers, Lactated) 1,000 mls @ 125 mls/hr IV ASDIRECTED [facility] Last Admin: 08/17/17 13:51 Dose: 125 mls/hr Lactated Ringer's (Ringers, Lactated) 1,000 mls @ 125 mls/hr IV ASDIRECTED [facility] Ketorolac Tromethamine (Toradol) 30 mg IVPUSH Q6H PRN PRN Reason: Pain (severe 7-10) Stop: 08/22/17 12:37 Metoclopramide HCl (Reglan) 10 mg IVPUSH Q6H [facility] Stop: 08/18/17 12:00 Last Admin: 08/18/17 07:48 Dose: Not Given Morphine Sulfate (Morphine) 4 mg IVPUSH Q2H PRN PRN Reason: Pain (severe 7-10) Last Admin: 08/17/17 17:44 Dose: 4 mg Ondansetron HCl (Zofran) 4 mg IVPUSH Q6H PRN PRN Reason: Nausea/Vomiting Oxycodone/Acetaminophen (Percocet 325-5 Mg) 1 tab PO Q4H PRN PRN Reason: Pain (moderate 4-6) Last Admin: 08/18/17 05:16 Dose: 1 tab Oxycodone/Acetaminophen (Percocet 325-5 Mg) 2 tab PO Q4H PRN PRN Reason: Pain (moderate 4-6) Last Admin: 08/17/17 22:26 Dose: 2 tab Promethazine HCl (Phenergan) 25 mg IM Q6H PRN PRN Reason: Nausea/Vomiting Scopolamine (Transderm-Scop) 1.5 mg TRDERM Q72H PRN PRN Reason: Nausea Last Admin: 08/17/17 07:19 Dose: 1.5 mg Sodium Chloride (Saline Flush) 10 ml FLUSH ASDIRECTED PRN PRN Reason: Keep Vein Open Sodium Chloride (Saline Flush) 2.5 ml FLUSH ASDIRECTED PRN PRN Reason: Keep Vein Open Discontinued Medications Bupivacaine HCl (Sensorcaine-Mpf 0.25%) Confirm Administered Dose 10 ml .ROUTE .STK-MED ONE Stop: 08/17/17 07:32 Ephedrine Sulfate (Ephedrine Sulfate) Confirm Administered Dose 50 mg .ROUTE .STK-MED ONE Stop: 08/17/17 08:37 Fentanyl (Sublimaze) Confirm Administered Dose 100 mcg .ROUTE .STK-MED ONE Stop: 08/17/17 07:20 Fentanyl (Sublimaze) Confirm Administered Dose 250 mcg .ROUTE .STK-MED ONE Stop: 08/17/17 07:20 Fentanyl (Sublimaze) Confirm Administered Dose 100 mcg .ROUTE .STK-MED ONE Stop: 08/17/17 11:09 Fluorescein Sodium (Ak-Fluor) Confirm Administered Dose 5 ml .ROUTE .STK-MED ONE Stop: 08/17/17 07:32 Furosemide (Lasix) Confirm Administered Dose 40 mg .ROUTE .STK-MED ONE Stop: 08/17/17 08:39 Glycopyrrolate (Robinul) Confirm Administered Dose 0.6 mg .ROUTE .STK-MED ONE Stop: 08/17/17 07:24 Hydromorphone HCl (Dilaudid) 0 mg IVPUSH ONETIME ONE Stop: 08/17/17 09:27 Last Admin: 08/17/17 13:00 Dose: 1 mg Hydromorphone HCl (Dilaudid) Confirm Administered Dose 2 mg .ROUTE .STK-MED ONE Stop: 08/17/17 12:47 Last Admin: 08/17/17 21:46 Dose: Not Given Cefazolin Sodium/Dextrose 1 gm (/ Premix) 50 mls @ 100 mls/hr IV ONETIME ONE Stop: 08/17/17 07:07 Last Admin: 08/17/17 21:45 Dose: Not Given Cefazolin Sodium/Dextrose (Ancef) Confirm Administered Dose 50 mls @ as directed .ROUTE .STK-MED ONE Stop: 08/17/17 07:24 Acetaminophen 1,000 mg/ Premix 100 mls @ 400 mls/hr IV Q6H [facility] Stop: 08/17/17 20:14 Last Admin: 08/17/17 20:40 Dose: 400 mls/hr Cefazolin Sodium/Dextrose 1 gm (/ Premix) 50 mls @ 200 mls/hr IV Q8HR [facility] Stop: 08/17/17 22:14 Last Admin: 08/17/17 22:22 Dose: 200 mls/hr Ketorolac Tromethamine (Toradol) Confirm Administered Dose 30 mg .ROUTE .STK- MED ONE Stop: 08/17/17 07:24 Ketorolac Tromethamine (Toradol) 30 mg IVPUSH ONETIME ONE Stop: 08/17/17 12:38 Last Admin: 08/17/17 21:46 Dose: Not Given Lidocaine (Xylocaine-Mpf 2%) Confirm Administered Dose 10 ml .ROUTE .STK-MED ONE Stop: 08/17/17 07:19 Methylene Blue (Provayblue) Confirm Administered Dose 50 mg .ROUTE .STK-MED ONE Stop: 08/17/17 07:43 Midazolam HCl (Versed 1 Mg/Ml) Confirm Administered Dose 2 mg .ROUTE .STK-MED ONE Stop: 08/17/17 07:20 Morphine Sulfate (Morphine) 4 mg IVPUSH Q2H PRN PRN Reason: Pain (severe 7-10) Neostigmine Methylsulfate (Neostigmine) Confirm Administered Dose 5 mg .ROUTE .STK-MED ONE Stop: 08/17/17 07:24 Ondansetron HCl (Zofran) Confirm Administered Dose 8 mg .ROUTE .STK-MED ONE Stop: 08/17/17 07:24 Propofol (Diprivan 20 Ml) Confirm Administered Dose 400 mg .ROUTE .STK-MED ONE Stop: 08/17/17 07:19 Propofol (Diprivan 20 Ml) Confirm Administered Dose 200 mg .ROUTE .STK-MED ONE Stop: 08/17/17 09:58 Rocuronium [place] (Zemuron) Confirm Administered Dose 100 mg .ROUTE .STK-MED ONE Stop: 08/17/17 07:24 Vasopressin (Vasopressin) Confirm Administered Dose 20 units .ROUTE .STK-MED ONE Stop: 08/17/17 07:31 *Q Meaningful Use (DIS) - VTE *Q VTE Criteria *Q: none
[2017-08-18] MEDS: Acetaminophen/oxyCODONE 325-5 MG Tab PO PRN (09:21)
== END 2017-08-18 09:45 | disposition home or self-care (01) ==
LOC: MW.SDS 06:29 → MW.OB 14:43 → MW.SDS 08-18 09:45
PROVIDERS: ATTEND Obstetrics & Gynecology
PROC: 0UT9FZZ Resection of Uterus, Via Natural or Artificial Opening With Percutaneous Endoscopic Assistance (ICD-10-PCS; principal; 2017-08-17)
PROC: 0UT7FZZ Resection of Bilateral Fallopian Tubes, Via Natural or Artificial Opening With Percutaneous Endoscopic Assistance (ICD-10-PCS; 2017-08-17)
DX: N39.9 Disorder of urinary system, unspecified (principal); N92.0 Excessive and frequent menstruation with regular cycle; R10.2 Pelvic and perineal pain; F32.9 Major depressive disorder, single episode, unspecified; F17.210 Nicotine dependence, cigarettes, uncomplicated; Z79.899 Other long term (current) drug therapy; Z91.040 Latex allergy status; Z91.018 Allergy to other foods
CPT/HCPCS: 36415; 58552; 80048; 84703; 85025; 86850; 86900; 86901; A9270; J0690; J1170; J1885; J1940; J2250; J2270; J2405; J2765; J3010; J7120; 88307; J2704